=== PATIENT | male | born 1940 | race Caucasian/White ===

== ENCOUNTER 2016-07-27 07:12 | Outpatient (CLI) ==
[2015-09-28 08:59] VITALS: BMI 35.2
--- NOTE | 2016-07-27 08:14 | US ---
EXAM: Renal ultrasound. History: Hematuria. Technique: Multiple sonographic images through the kidneys were obtained. Color duplex Doppler was used to interrogate vascular flow. Findings: Technically limited examination due to body habitus. The right kidney measures 9.9 cm in long length without evidence for hydronephrosis or shadowing annika culus. There are two right renal cysts with the largest measuring 1.7 cm demonstrating posterior ac oustic enhancement. These cysts demonstrate minimal internal echoes. The left kidney measures 11.4 cm in long length without evidence for hydronephrosis or shadowing annika culus. There are two left renal cysts with the largest measuring 3.1 cm demonstrating minimal inter nal echoes. The bladder is not well distended. Impression: 1. No hydronephrosis. 2. Mildly complicated bilateral renal cysts. Follow-up ultrasound can be obtained in 6 months to d ocument stability.
== END 2016-07-27 07:13 | disposition home or self-care (01) ==
LOC: RAD 07:12
PROVIDERS: ATTEND General Practice
DX: R31.9 Hematuria, unspecified (principal)
CPT/HCPCS: 76770

== ENCOUNTER 2016-09-22 19:23 | Observation (INO) ==
[2016-09-22] MEDS ORDERED: GI COCKTAIL PO STA (19:45)
--- NOTE | 2016-09-22 19:47 | ED.PDOC ---
General ED Provider: Dr. CHEPE SUÁREZ Chief Complaint: Abdominal Pain Stated Complaint: Patient c/o pain to epigastric area that started after a later lunch. states he had sausage for lunch and started having burning and it hurts. He rate the pain at 7/10 states he took some bicarb and it helped a little. states he has a hx of reflux take prilosec. states he has been burping. Had a stress test 4 years ago prior to his hip surgery. Time Seen by Physician: 19:45 Mode of Arrival: Walk-In Information Source: Patient, Family Exam Limitations: No limitations Primary Care Provider: [facility] Nursing and Triage Documentation Reviewed and Agree: Yes Cardiovascular Complaint Exam - Chest Pain Complaint/Exam Duration: 4 hours Symptoms Are: Still present Timing: Constant Initial Severity: Moderate Current Severity: Moderate Location: Reports: Other (epigastric area ) Pain Radiates: Reports: None Character: Reports: Dull, Aching Aggravating: Reports: None Alleviating: Reports: None (gi cocktail slightly helps ) Associated Signs and Symptoms: Reports: Nausea, Abdominal pain. Denies: Diaphoresis, Vomiting, Fever, Palpitations, Cough, Hemoptysis, Back pain, Dizziness, Short of air, Calf pain, Calf swelling Related History: Reports: Similar episode (Reflux ) Related Surgical History: Reports: None History of Healthcare-Acquired Pneumonia: Reports: No AMI/ACS Risk Factors: Reports: None TAD Risk Factors: Reports: None Pulmonary Embolism Risk Factors: Reports: None Prior Care for this Complaint: No Recent Stress Test: No (4 year ago was normal (prior to hip repalcement) ) Recent Echo/LV Function: No JVD Present: No Subcutaneous Emphysema Present: No Diminshed Breath Sounds: No Reproducible Chest Wall Pain: No Bilateral Pulses Present: No Unequal Pulses Noted: No If Risk Factors for AMI/ACS Consider: EKG, Cardiac Enzymes, Oxygen Differential Diagnoses: Acute OK, ACS, GI Diseasae Review of Systems - Review Of Systems Constitutional: Reports: No symptoms Respiratory: Reports: No symptoms Cardiac: Reports: Chest pain (epigastric area. ) GI: Reports: Abdominal pain (epigastri carea ), Nausea. Denies: Constipated, Diarrhea, Difficulty swallowing : Reports: No symptoms Musculoskeletal: Reports: Back pain (chronic ) Skin: Reports: No symptoms Neurological: Reports: Anxiety Endocrine: Reports: No symptoms All Other Systems: Reviewed and Negative Past Medical History - Past Medical History Endocrine: Reports: None Cardiovascular: Reports: Hypertension Respiratory: Reports: None Hematological: Reports: Anemia Gastrointestinal: Reports: GERD Genitourinary: Reports: None Neuro/Psych: Reports: None Musculoskeletal: Reports: None Cancer: Reports: None - Surgical History General Surgical History: Reports: Orthopedic - Family History Family History: Reports: Unknown - Social History Smoking Status: Former smoker Hx Substance Use: No Physical Exam - Physical Exam Appearance: Ill-appearing Ill-appearing: Moderate Pain Distress: Moderate Eyes: LUIS EDUARDO, EOMI, Conjunctiva clear Neck: Supple Respiratory: Airway patent, Breath sounds clear, Breath sounds equal, Respirations nonlabored Cardiovascular: Bradycardia (with occasional Skipped beat) GI/: Soft, Nontender, No masses, Bowel sounds normal, No Organomegaly Musculoskeletal: Normal strength, ROM intact, No edema, No calf tenderness Skin: Warm, Dry, Normal color Neurological: Sensation intact, Motor intact, Reflexes intact, Cranial nerves intact, Alert, Oriented Psychiatric: Anxious Interpretation - Radiology Interpretation Radiology Interpretation By: Radiologist Radiology Results: Negative Exam Interpreted: CT Scan (chest and abdomen - Diverticular disease without inflamation. non obstructing stone. ) - EKG Interpretation Time of EKG #1: 19:37 Rate: Normal Rhythm: Sinus Interpretation: incomplete Right Bandle branch block Physician Notification - Case Discussed Physician Notified: Dr Park Time of Notification: 21:15 (ok to admit for obeservation. ) Critical Care Note - Critical Care Note Total Time (mins): 10 Course - Course Hematology/Chemistry: 09/22/16 19:49 09/22/16 19:49 Orders, Labs, Meds: Lab Review 09/22/16 09/22/16 19:43 19:49 WBC 7.69 RBC 4.62 L Hgb 14.3 Hct 42.5 MCV 92.0 MCH 31.0 MCHC 33.6 RDW Coeff of Monique 12.5 Plt Count 223 Immature Gran % (Auto) 0.3 Neut % (Auto) 66.4 Lymph % (Auto) 24.4 Eddy % (Auto) 7.4 Eos % (Auto) 1.0 Baso % (Auto) 0.5 Immature Gran # (Auto) 0.0 Neut # 5.1 Lymph # 1.9 Eddy # 0.6 Eos # 0.1 Baso # 0.0 Puncture Site Rb O2 Saturation 95.0 ABG pH 7.402 ABG pCO2 52.5 H ABG pO2 75.0 L ABG HCO3 32.7 H ABG Total CO2 34 H ABG Base Excess [address] Test + FiO2 % 21.0 Sodium 144 Potassium 3.3 L Chloride 99 Carbon Dioxide 37 H Anion Gap 11.3 BUN 18 Creatinine 0.83 Estimated GFR (MDRD) 90.00 BUN/Creatinine Ratio 21.68 Glucose 144 H Calcium 8.9 Total Bilirubin 0.34 AST 17 ALT 15 Alkaline Phosphatase 86 Total Creatine Kinase 59 Troponin I 0.1240 B-Natriuretic Peptide 139 H Total Protein 7.1 Albumin 3.6 Globulin 3.5 Albumin/Globulin Ratio 1.03 Amylase 68 Lipase 28 Orders Category Date Time Status ABG DRAW REQUEST Stat CARDIO 09/22/16 19:44 Completed EKG-(ED ONLY) Stat CARDIO 09/22/16 19:43 Completed ED APPLY O2 .ONCE EMERGENCY 09/22/16 19:43 Active ED IV/MEDIPORT/POWERPORT .ONCE EMERGENCY 09/22/16 19:43 Active ABG Stat LAB 09/22/16 19:43 Completed AMYLASE Stat LAB 09/22/16 19:49 Completed B-TYPE NATRIURETIC PEPTIDE Stat LAB 09/22/16 19:49 Completed CBC W/ AUTO DIFF Stat LAB 09/22/16 19:49 Completed COMPREHENSIVE METABOLIC PANEL Stat LAB 09/22/16 19:49 Completed CREATINE KINASE Stat LAB 09/22/16 19:49 Completed LIPASE Stat LAB 09/22/16 19:49 Completed TROPONIN I Stat LAB 09/22/16 19:49 Completed 0.9 % Sodium Chloride [Saline Flush] MEDS 09/22/16 19:43 Ordered 1 syr IVF PRN PRN Mag-Al Plus//Lidocaine [Gi Cocktail] MEDS 09/22/16 19:45 Discontinued 30 ml PO ONCE STA CT ABD/PEL WO RENAL STONE PROT Stat RADS 09/22/16 20:[address] CHEST W/O CONTRAST Stat RADS 09/22/16 20:06 Completed Medications Generic Name Dose Route Start Last Admin Trade Name Freq PRN Reason Stop Dose Admin Sodium Chloride 1 syr 09/22/16 19:43 Saline Flush IVF PRN PRN To flush IV Discontinued Medications Generic Name Dose Route Start Last Admin Trade Name Freq PRN Reason Stop Dose Admin Al Hydroxide/Mg Hydroxide 30 ml 09/22/16 19:45 09/22/16 19:58 Gi Cocktail PO 09/22/16 19:46 30 ml ONCE STA Administration Vital Signs: Temp Pulse Resp BP Pulse Ox 09/22/16 19:23 98.1 F 55 L 16 157/81 H 93 L YAQUELIN Risk Score Age >/= 65: Yes >/= 3 CAD Risk Factors: No Known CAD (Stenosis >/= 50%): No ASA Use in Past 7 Days: Yes Severe Angina (>/= 2 episodes in 24 hours): No EKG ST Changes >/= 0.5mm: No Postive Cardiac Marker: No YAQUELIN Total Score: 2 YAQUELIN Risk Score: Risk Score Odds of by 30D 0 0.1 (0.1-0.2) 1 0.3 (0.2-0.3) 2 0.4 (0.3-0.5) 3 0.7 (0.6-0.9) 4 1.2 (1.0-1.5) 5 2.2 (1.9-2.6) 6 3.0 (2.5-3.6) 7 4.8 (3.8-6.1) Departure - Departure Time of Disposition: 21:25 Disposition: PLACED OBSERVATION Discharge Problem: Abdominal pain Instructions: Abdominal Pain (ED) Condition: Stable Pt referred to PMD for follow-up: Yes Allergies/Adverse Reactions: Allergies latex Allergy (Unverified 09/22/16 19:27) BREAKS OUT WHEN USING LATEX GLOVES niacin Allergy (Unverified 09/22/16 19:27) HOT, RASH Home Medications: Ambulatory Orders Aspirin [Aspirin Ec] 81 mg PO DAILY 03/15/15 Cyanocobalamin (Vitamin B-12) [B-12] 2,500 mcg SL DAILY 03/15/15 Omeprazole 20 mg PO BEDTIME 03/15/15 Magnesium Oxide [Magnesium] 500 mg PO DAILY #30 tab-cap 03/17/16 Ezetimibe/Simvastatin [Vytorin 10-40 mg Tablet] 1 each PO BEDTIME 09/22/16 [place]-3S/Dha/Epa/Fish Oil [Fish Oil [place]-3 Softgel] 2 each PO DAILY 09/22/16 Disposition Discussed With: Patient, Family
[2016-09-22 19:54] LABS: BASOPHILS % (AUTO) 0.5 % (0.0-3.0); EOSINOPHILS # (AUTO) 0.1 K/ul (0.0-0.7); HEMATOCRIT 42.5 % (42.0-52.0); HEMOGLOBIN 14.3 g/dl (14.0-18.0); IMMATURE GRANULOCYTE % (AUTO) 0.3 % (0.0-5.0); LYMPHOCYTES # (AUTO) 1.9 K/uL (0.60-3.4); LYMPHOCYTES % (AUTO) 24.4 (10.0-50.0); MEAN CORPUSCULAR HGB CONC 33.6 (31.8-35.4); MONOCYTES # (AUTO) 0.6 K/uL (0.4-2.0); MONOCYTES % (AUTO) 7.4 (0-10); NEUTROPHILS # (AUTO) 5.1 K/ul (2.0-6.9); NEUTROPHILS % (AUTO) 66.4; PLATELET COUNT 223 10^3/uL (140-440); RED BLOOD COUNT 4.62 10^6/ul (4.70-6.10); WHITE BLOOD COUNT 7.69 K/ul (4.2-10.2)
[2016-09-22 19:57] LABS: ABG BASE EXCESS 8 (-2.0-2.0); ABG HCO3 32.7 (22.0-26.0); ABG PCO2 52.5 mmHg (35-45); ABG PH 7.402 (7.35-7.45); ABG TCO2 34 (22.0-28.0)
[2016-09-22 20:19] LABS: ALBUMIN 3.6 g/dL (3.4-5.0); ALBUMIN/GLOBULIN RATIO 1.03; ANION GAP 11.3; BILIRUBIN,TOTAL 0.34 mg/dL (0.00-1.20); BUN/CREATININE RATIO 21.68; CALCIUM 8.9 mg/dL (8.2-10.2); CREATININE 0.83 mg/dL (0.60-1.10); POTASSIUM 3.3 mmol/L (3.5-5.1); TOTAL PROTEIN 7.1 g/dL (5.8-8.1); TROPONIN I 0.124 ng/ml (0.0000-0.4000)
--- NOTE | 2016-09-22 20:39 | CT ---
Exam: CT of the chest without contrast History: Chest pain, epigastric pain Technique: [address] of the chest without intravascular contrast FINDINGS: Lung windows show no infiltrative opacities. There is scarring of the lingula and right m iddle lobe. No pleural fluid. Atherosclerotic calcification of the aorta and coronary arteries. N o aneurysmal dilation. No pathologic lymph node enlargement or abundance of mediastinum. No acute findings of the chest wall soft tissues or bony thorax. Impression: 1. No acute findings of the chest 2. Scarring of the lingula and right middle lobe.
--- NOTE | 2016-09-22 20:41 | CT ---
EXAM: CT scan of the abdomen and pelvis without contrast HISTORY: Epigastric pain TECHNIQUE: Imaging of the abdomen and pelvis was performed without intravenous contrast. 3 mm thin axial images and coronal and sagittal reconstructions were provided for interpretation. Comparison none . FINDINGS: The liver, spleen, pancreas, adrenal glands and kidneys appear normal. The proximal uret ers are normal size. There is a lobulated cyst seen within the mid to upper pole of the left kidney. There is a small nonobstructing calculus seen within the upper pole of the left kidney. The small a nd large bowel loops are normal caliber. There is no free air. No acute abnormalities are seen wit hin the anterior abdominal wall. No acute inflammatory changes are seen surrounding the gallbladder. The helical images obtained through the pelvis demonstrate a normal appearance of the rectum, urinar y bladder. There is no free fluid seen within the pelvis. There is diffuse diverticular disease of the sigmoid colon and descending colon without acute inflammation. The appendix appears normal. N o retroperitoneal abnormalities are seen. No acute abnormalities are seen within the anterior abdom inal wall. Lung bases are clear. No lytic or blastic lesions are seen within the osseous structure s. IMPRESSION: Diverticular disease of the distal colon without acute inflammation. No evidence for small bowel obstruction. There is no ureteral obstruction. Nonobstructing nephrolithiasis seen within the left kidney.
[2016-09-22 20:42] LABS: AMYLASE 68 U/L (25-115); LIPASE 28 U/L (8-78)
[2016-09-22] MEDS ORDERED: ZOFRAN 4 MG/2 ML IVP STA (21:21)
[2016-09-22] MEDS ORDERED: MORPHINE 2 MG/ML SYRINGE IVP PRN (21:39)
[2016-09-22] MEDS ORDERED: ZOFRAN 4 MG/2 ML IVP PRN (21:39)
[2016-09-22] MEDS ORDERED: TYLENOL PO PRN (21:39)
[2016-09-22] MEDS ORDERED: PROTONIX IV IVP STA (21:44)
[2016-09-22] MEDS ORDERED: APRESOLINE PO STA (22:00)
[2016-09-22] MEDS ORDERED: PROTONIX IV IVP SCH (22:00)
[2016-09-22 22:46] VITALS: BMI 33.1
[2016-09-22] MEDS ORDERED: D5%-1/2NS-KCL 20 MEQ/L IV SOL 1,000 ML IV SCH (23:30)
[2016-09-23 05:12] LABS: BASOPHILS % (AUTO) 0.3 % (0.0-3.0); HEMATOCRIT 44.6 % (42.0-52.0); HEMOGLOBIN 14.6 g/dl (14.0-18.0); IMMATURE GRANULOCYTE % (AUTO) 0.4 % (0.0-5.0); LYMPHOCYTES # (AUTO) 1.5 K/uL (0.60-3.4); LYMPHOCYTES % (AUTO) 11.4 (10.0-50.0); MEAN CORPUSCULAR HEMOGLOBIN 30.9 pg (27.0-31.0); MEAN CORPUSCULAR HGB CONC 32.7 (31.8-35.4); MEAN CORPUSCULAR VOLUME 94.5 fl (80.0-94.0); MONOCYTES # (AUTO) 0.7 K/uL (0.4-2.0); MONOCYTES % (AUTO) 5.6 (0-10); NEUTROPHILS # (AUTO) 10.6 K/ul (2.0-6.9); NEUTROPHILS % (AUTO) 82.3; PLATELET COUNT 164 10^3/uL (140-440); RED BLOOD COUNT 4.72 10^6/ul (4.70-6.10); WHITE BLOOD COUNT 12.93 K/ul (4.2-10.2)
[2016-09-23 05:40] LABS: ANION GAP 14.3; CALCIUM 8.6 mg/dL (8.2-10.2); CREATININE 0.72 mg/dL (0.60-1.10); POTASSIUM 4.3 mmol/L (3.5-5.1); TROPONIN I 0.214 ng/ml (0.0000-0.4000)
[2016-09-23] MEDS ORDERED: ASPIRIN 81 MG PO SCH (09:00)
[2016-09-23] MEDS ORDERED: MULTIVITAMIN PO SCH (09:00)
[2016-09-23] MEDS: NON-FORMULARY MEDICATION (Magnesium Oxide [Magnesium] 500 MG) PO SCH ×22 (10:36)
[2016-09-23] MEDS: NON-FORMULARY MEDICATION (Cyanocobalamin (Vitamin B-12) [B-12] 2,500 MCG) SL SCH (10:36)
[2016-09-23] MEDS: LOVENOX SUBCUT SCH (10:37)
[2016-09-23] MEDS: FISH OIL PO SCH (10:39)
[2016-09-23] MEDS: DHA PO SCH (10:39)
[2016-09-23] MEDS: EPA PO SCH (10:39)
[2016-09-23] MEDS: OMEGA PO SCH (10:39)
[2016-09-23] MEDS: D5%-1/2NS-KCL 20 MEQ/L IV SOL 1,000 ML IV SCH ×2 (11:02→22:37)
[2016-09-23] MEDS ORDERED: TYLENOL ONE (11:36)
[2016-09-23 11:47] LABS: CHOL/HDL RATIO 3.3 (4.5-6.4)
[2016-09-23 12:07] LABS: TROPONIN I 0.247 ng/ml (0.0000-0.4000)
[2016-09-23] MEDS: TYLENOL PO PRN (20:42)
[2016-09-23] MEDS ORDERED: ATENOLOL 12.5 MG PO SCH (21:00)
[2016-09-23] MEDS ORDERED: PROTONIX IV IVP SCH (21:00)
[2016-09-23] MEDS ORDERED: EZETIMIBE PO SCH ×21 (21:00)
[2016-09-23] MEDS ORDERED: SIMVASTATIN PO SCH ×21 (21:00)
[2016-09-24 05:50] VITALS: BP 127/71; TEMP 97.5
[2016-09-24 05:52] LABS: BASOPHILS % (AUTO) 0.3 % (0.0-3.0); EOSINOPHILS % (AUTO) 0.2 % (0.0-7.0); HEMATOCRIT 39.4 % (42.0-52.0); HEMOGLOBIN 12.9 g/dl (14.0-18.0); IMMATURE GRANULOCYTE % (AUTO) 0.5 % (0.0-5.0); LYMPHOCYTES # (AUTO) 1.2 K/uL (0.60-3.4); MEAN CORPUSCULAR HEMOGLOBIN 30.3 pg (27.0-31.0); MEAN CORPUSCULAR HGB CONC 32.7 (31.8-35.4); MEAN CORPUSCULAR VOLUME 92.5 fl (80.0-94.0); MONOCYTES % (AUTO) 9.1 (0-10); NEUTROPHILS # (AUTO) 8.3 K/ul (2.0-6.9); NEUTROPHILS % (AUTO) 78.9; PLATELET COUNT 191 10^3/uL (140-440); RED BLOOD COUNT 4.26 10^6/ul (4.70-6.10)
[2016-09-24 06:17] LABS: ANION GAP 6.2; BUN/CREATININE RATIO 16.17; CALCIUM 8.5 mg/dL (8.2-10.2); CREATININE 0.68 mg/dL (0.60-1.10); POTASSIUM 4.2 mmol/L (3.5-5.1)
[2016-09-24] MEDS: TYLENOL PO PRN (08:53)
[2016-09-24] MEDS: NON-FORMULARY MEDICATION (Magnesium Oxide [Magnesium] 500 MG) PO SCH ×22 (08:54)
[2016-09-24] MEDS: NON-FORMULARY MEDICATION (Cyanocobalamin (Vitamin B-12) [B-12] 2,500 MCG) SL SCH (08:54)
[2016-09-24] MEDS: LOVENOX SUBCUT SCH (08:54)
[2016-09-24] MEDS: EPA PO SCH (08:56)
[2016-09-24] MEDS: DHA PO SCH (08:56)
[2016-09-24] MEDS: FISH OIL PO SCH (08:56)
[2016-09-24] MEDS: OMEGA PO SCH (08:56)
--- NOTE | 2016-10-06 11:37 | HP ---
CHIEF COMPLAINT: Epigastric pain. SOURCE OF HISTORY: Patient and . HISTORY OF PRESENT ILLNESS: The patient had lunch about 1:30 in the afternoon at [employer]. He had spaghetti, plus sausage. He did not have any problems and on the way paid their bills to the hospital and also went to a grocery store. The patient about an hour and half to two hours after the meals did experience epigastric pain and with no particular radiation and no vomiting or diarrhea. He took some bicarbonate and it did help a little. He has a history of reflux problems and the bicarbonate did help some problems in the past. The pain persisted and so he presented to the emergency room with his . The patient had a work up consisting of CBC, plus chemistry, EKG, CT scan of the chest and abdomen and pelvis without contrast. He also was given a GI cocktail, which helped somewhat. He still had persistent pain and so the patient was admitted to the hospital. He also had a normal cardiac enzymes and normal serum amylase and lipase. PAST PERSONAL HISTORY: The patient has hypertension, mild anemia, asthma, GERD, renal stones and right hip replacement. He also had COPD and a previous smoker. He smoked approximately 20 years. He had right total hip replacement, plus a colonoscopy. FAMILY HISTORY: Sister had myocardial infarction. Father committed suicide. Mother had colon carcinoma and there is a preponderance of malignancy on his mother's side. SOCIAL HISTORY: and lives with . He smoked for approximately 20 years, but stopped 19 years ago. HOME MEDICATIONS: Vitamin B12 2,500 mcg SL daily Aspirin 81 mg daily Omeprazole 20 mg at bedtime Multivitamin one daily Magnesium Oxide 500 mg daily Atenolol 12.5 mg at bedtime Valsartan/HCTZ 80/12.5 mg daily Reliance 3 two daily Vytorin 10/40 mg one at bedtime ALLERGIES: Latex and Niacin. PHYSICAL EXAMINATION: GENERAL: 76 year old male admitted to the hospital because of epigastric pain without any particular radiation. The pain had improved with the medication given at the emergency room. There were no associated symptoms, except for the epigastric pain, as well as tenderness. VITAL SIGNS: Temperature 98.1, pulse 55, blood pressure 157/81, respiratory rate 16, oxygen saturation 93 at room air. He is 5'10", 242 pounds. HEAD: Unremarkable. FACE: Symmetrical and equal with no facial weakness and no tenderness to palpation under pressure on the frontal or maxillary sinus areas. EYES: Pupils equal/reactive to light about 3 mm in size. Conjunctivae slightly pale. Sclerae not icteric. MOUTH: Unremarkable. NECK: No masses. No bruit. No tenderness. CHEST: Essentially symmetrical and equal with good expansion with no remarkable tenderness. LUNGS: Breath sounds are somewhat diminished with minimal wheeze at the time of my examination at 10:45 p.m. on the day of admission. HEART: Normal sinus rhythm. ABDOMEN: Flat with tenderness in the epigastric area. None in the rest of the abdomen. No masses palpable. No muscular guarding. Bowel sounds are active. EXTERNAL GENITALIA: Not examined. RECTAL: Not done. LOWER EXTREMITIES: Symmetrical and equal with edema 2+. The anterior tibials are present, but the posterior's are absent. UPPER EXTREMITIES: Symmetrical and equal. ASSESSMENT: 1. Epigastric pain, etiology undetermined. It may be food hypersensitivity. 2. History of hypertension on medication. 3. History of GERD on medication. 4. History of asthma. 5. History of COPD. 6. History of chronic tobacco use and abuse, stopped 19 years ago. 7. Elevated BMI 33.1. 8. Anemia. 9. Dyslipidemia. 10. Hypoxemia. 11. Hypercarbia. MTDD
--- NOTE | 2016-10-09 09:37 | PN ---
DATE OF VISIT: 09/23/16 This is a 76 year old male admitted to the hospital because of epigastric pain. I did see him on the night of admission at about 10:45 p.m. The patient at that time was feeling better, although he had persistent pain, but much less. LUNGS: The lungs had minimal expiratory wheeze with no obvious rales. HEART: Audible with good tones. ABDOMEN: The epigastric area was tender to palpation, but no masses and no bruit. No muscular guarding and no remarkable tenderness in the rest of the area in the abdomen. LOWER EXTREMITIES: The legs had some 2+ pitting edema and absent posterior tibials. The patient's repeat chemistry today showed no significant findings, except the carbon dioxide has decreased from 37 to 29, which is now normal. The repeat CK remained normal, as well as the Troponin. The initial BNP was slightly elevated at 139 and the serum amylase and lipase were normal on admission, however the lipase did rise to 168 on 09/23/16. I did discuss this with the patient and also his and I advised a day more of staying in the hospital to see what the lipase would do including the amylase with resumption of oral feeding. The patient was placed NPO after I had seen him on the day of admission. The chemistries will be repeated tomorrow, as well as the lipase and amylase. MONET
--- NOTE | 2016-10-09 09:57 | DS ---
PATIENT IDENTIFICATION: 76 year old male who experienced epigastric pain described as severe and constant in spite of the bicarbonate about 1 and a half to 2 hours after consuming spaghetti with meatballs or sausages. He was seen in the emergency room about 5 and half hours to 6 after the meal. The patient's examination revealed tenderness in the epigastric area, otherwise the rest were unremarkable. This patient also had absent posterior tibial pulse, as well as some expiratory wheezing and he is known to have asthma and COPD with previous tobacco use. HOSPITAL COURSE: The serum lipase did increase beyond normal on the second hospital stay, 09/23/16, as well as the amylase. Although the amylase remained normal. The repeat CK and Troponin remained normal. The CO2 has decreased from 37 to 29. The patient is feeling better and with no significant pain and indeed the tenderness is not remarkable . The rest of the abdomen was soft. The patient on 09/24/16 is alert. VITAL SIGNS: Early in the morning at 5:59 had a temperature of 97.3, pulse 54, blood pressure 127/71, respiratory rate 22, oxygen saturation 92 at 2 Liters. The patient claimed that he is feeling better and no epigastric pain. The Prilosec was changed to Protonix, as the Protonix seemed to have improved the problem. Although it may still be some food intolerance that triggered the epigastric pain. It does not seem to be a pancreatitis, since the lipase resolved the next day and it should have stayed longer. LUNGS: The lungs has wheezing and the posterior chest forman bilaterally with no rales. HEART: Audible with good tones and regular. ABDOMEN: The abdomen has no tenderness. LOWER EXTREMITIES: No tenderness in the calf muscles and the posterior tibials are still absent. PLAN: 1. The patient is then discharged today. 2. Resume his previous medications and the Omeprazole was changed to Protonix to be taken one a day before the biggest meal. 3. He should see me in one week and before if there is any concerns. 4. This patient may require an endoscopy. He had a previous colonoscopy and would be sent to the same GI doctor. We will discuss that when he come to the office for follow up. FINAL DIAGNOSES: 1. EPIGASTRIC PAIN WITH NO RADIATION, RESOLVED. ETIOLOGY UNDETERMINED 2. HYPERTENSION, CONTROLLED 3. HISTORY OF ASTHMA 4. HISTORY OF CHRONIC OBSTRUCTIVE PULMONARY DISEASE 5. HISTORY OF CHRONIC TOBACCO USE AND ABUSE, SMOKED FOR 19 YEARS 6. ELEVATED BMI, PERSISTENT 7. HISTORY OF RIGHT HIP REPLACEMENT 8. HISTORY OF ANEMIA 9. HISTORY OF URETEROLITHIASIS MTDD
== END 2016-09-24 11:10 | disposition home or self-care (01) ==
LOC: ED 19:23 → MEDSURG A 21:43
PROVIDERS: ADMIT General Practice; ATTEND General Practice
DX: R10.13 Epigastric pain (principal); I10 Essential (primary) hypertension; J44.9 Chronic obstructive pulmonary disease, unspecified; J45.909 Unspecified asthma, uncomplicated; R06.89 Other abnormalities of breathing; R60.0 Localized edema; D64.9 Anemia, unspecified; N20.1 Calculus of ureter; K21.9 Gastro-esophageal reflux disease without esophagitis; R63.8 Other symptoms and signs concerning food and fluid intake; Z87.442 Personal history of urinary calculi; Z87.891 Personal history of nicotine dependence; Z79.899 Other long term (current) drug therapy
CPT/HCPCS: 36415; 74176; 80048; 80053; 80061; 82150; 82550; 82803; 83690; 83880; 84484; 85025; 93005; 93010; 96361; 96374; 96375; 96376; 99217; 99219; 99225; 99284; 99285

== ENCOUNTER 2016-09-25 12:25 | Outpatient (CLI) ==
[2016-09-25 13:38] LABS: FLU INTERNAL QC INTERNAL QC VALID; RAPID FLU A NEGATIVE (NEGATIVE); RAPID FLU B NEGATIVE (NEGATIVE)
[2016-09-25 13:38] LABS: BASOPHILS % (AUTO) 0.2 % (0.0-3.0); HEMATOCRIT 39.7 % (42.0-52.0); HEMOGLOBIN 13.1 g/dl (14.0-18.0); IMMATURE GRANULOCYTE % (AUTO) 0.5 % (0.0-5.0); LYMPHOCYTES # (AUTO) 1.6 K/uL (0.60-3.4); LYMPHOCYTES % (AUTO) 12.2 (10.0-50.0); MEAN CORPUSCULAR HEMOGLOBIN 30.2 pg (27.0-31.0); MEAN CORPUSCULAR VOLUME 91.5 fl (80.0-94.0); MONOCYTES # (AUTO) 1.1 K/uL (0.4-2.0); MONOCYTES % (AUTO) 8.8 (0-10); NEUTROPHILS # (AUTO) 10.1 K/ul (2.0-6.9); NEUTROPHILS % (AUTO) 78.3; PLATELET COUNT 225 10^3/uL (140-440); RED BLOOD COUNT 4.34 10^6/ul (4.70-6.10); WHITE BLOOD COUNT 12.89 K/ul (4.2-10.2)
[2016-09-25 13:52] LABS: ALBUMIN 3.1 g/dL (3.4-5.0); ALBUMIN/GLOBULIN RATIO 0.84; ANION GAP 12.3; BILIRUBIN,TOTAL 1.34 mg/dL (0.00-1.20); BUN/CREATININE RATIO 22.35; CALCIUM 9.1 mg/dL (8.2-10.2); CREATININE 0.85 mg/dL (0.60-1.10); POTASSIUM 4.3 mmol/L (3.5-5.1); TOTAL PROTEIN 6.8 g/dL (5.8-8.1)
== END 2016-09-25 12:26 | disposition home or self-care (01) ==
LOC: LAB 12:25
PROVIDERS: ATTEND General Practice
DX: R50.9 Fever, unspecified (principal)
CPT/HCPCS: 36415; 80053; 84145; 85025; 87651; 87804; 87880

== ENCOUNTER 2016-10-01 11:49 | Outpatient (CLI) ==
--- NOTE | 2016-10-01 12:55 | US ---
EXAM: Ultrasound soft tissue neck HISTORY: Localized swelling, swelling, mass or lump. FINDINGS: Burgess-scale ultrasound and color Doppler imaging was performed in the region of interest d escribed as the submandibular gland area, right submandibular area, palpable area. There was a small normal-sized lymph node identified in this region with a transverse dimension of 0 .44 cm and a benign appearing fatty hilum. No other masses were identified. No fluid collections. If concern is persistent, consider correlation with enhanced CT. IMPRESSION: Small lymph node found in the region of interest. Otherwise unremarkable.
== END 2016-10-01 11:50 | disposition home or self-care (01) ==
LOC: LAB 11:49
PROVIDERS: ATTEND General Practice
DX: R50.9 Fever, unspecified (principal); R22.0 Localized swelling, mass and lump, head
CPT/HCPCS: 36415; 84075

== ENCOUNTER 2017-01-07 11:32 | Outpatient (CLI) ==
[2017-01-07 13:08] LABS: BASOPHILS % (AUTO) 0.7 % (0.0-3.0); EOSINOPHILS # (AUTO) 0.1 K/ul (0.0-0.7); EOSINOPHILS % (AUTO) 2.4 % (0.0-7.0); HEMATOCRIT 40.6 % (42.0-52.0); HEMOGLOBIN 13.3 g/dl (14.0-18.0); IMMATURE GRANULOCYTE % (AUTO) 0.2 % (0.0-5.0); LYMPHOCYTES # (AUTO) 1.8 K/uL (0.60-3.4); LYMPHOCYTES % (AUTO) 33.4 (10.0-50.0); MEAN CORPUSCULAR HEMOGLOBIN 30.7 pg (27.0-31.0); MEAN CORPUSCULAR HGB CONC 32.8 (31.8-35.4); MEAN CORPUSCULAR VOLUME 93.8 fl (80.0-94.0); MONOCYTES # (AUTO) 0.5 K/uL (0.4-2.0); MONOCYTES % (AUTO) 8.3 (0-10); PLATELET COUNT 229 10^3/uL (140-440); RED BLOOD COUNT 4.33 10^6/ul (4.70-6.10); WHITE BLOOD COUNT 5.45 K/ul (4.2-10.2)
[2017-01-07 13:14] LABS: BILIRUBIN,URINE Negative (NEGATIVE); KETONES,URINE Negative (NEGATIVE); LEUKOCYTE ESTERASE ,URINE Negative (NEGATIVE); NITRITE,URINE Negative (NEGATIVE); PH,URINE 7.5 (5-9); PROTEIN,URINE Negative (NEGATIVE); URINE, BLOOD Trace-intact (NEGATIVE)
[2017-01-07 13:19] LABS: ALBUMIN 3.5 g/dL (3.4-5.0); ALBUMIN/GLOBULIN RATIO 1.13; ANION GAP 12.1; BILIRUBIN,TOTAL 0.65 mg/dL (0.00-1.20); BUN/CREATININE RATIO 16.66; CREATININE 0.78 mg/dL (0.60-1.10); POTASSIUM 4.1 mmol/L (3.5-5.1); TOTAL PROTEIN 6.6 g/dL (5.8-8.1)
[2017-01-07 13:20] LABS: CHOL/HDL RATIO 3.7 (4.5-6.4)
[2017-01-07 13:52] LABS: ADD URINE MICROSCOPIC YES
== END 2017-01-07 11:33 | disposition home or self-care (01) ==
LOC: LAB 11:32
PROVIDERS: ATTEND General Practice
DX: E78.5 Hyperlipidemia, unspecified (principal); Z79.899 Other long term (current) drug therapy
CPT/HCPCS: 36415; 80053; 80061; 81001; 85025

== ENCOUNTER 2017-07-07 13:53 | Outpatient (CLI) ==
[2017-07-07 14:03] LABS: BASOPHILS % (AUTO) 0.5 % (0.0-3.0); EOSINOPHILS # (AUTO) 0.1 K/ul (0.0-0.7); EOSINOPHILS % (AUTO) 1.4 % (0.0-7.0); HEMATOCRIT 41.9 % (42.0-52.0); HEMOGLOBIN 13.6 g/dl (14.0-18.0); IMMATURE GRANULOCYTE % (AUTO) 0.2 % (0.0-5.0); LYMPHOCYTES # (AUTO) 1.7 K/uL (0.60-3.4); LYMPHOCYTES % (AUTO) 25.3 (10.0-50.0); MEAN CORPUSCULAR HEMOGLOBIN 30.4 pg (27.0-31.0); MEAN CORPUSCULAR HGB CONC 32.5 (31.8-35.4); MEAN CORPUSCULAR VOLUME 93.7 fl (80.0-94.0); MONOCYTES # (AUTO) 0.4 K/uL (0.4-2.0); MONOCYTES % (AUTO) 6.6 (0-10); NEUTROPHILS # (AUTO) 4.3 K/ul (2.0-6.9); PLATELET COUNT 223 10^3/uL (140-440); RED BLOOD COUNT 4.47 10^6/ul (4.70-6.10); WHITE BLOOD COUNT 6.53 K/ul (4.2-10.2)
[2017-07-07 14:05] LABS: BILIRUBIN,URINE Negative (NEGATIVE); KETONES,URINE Negative (NEGATIVE); LEUKOCYTE ESTERASE ,URINE Negative (NEGATIVE); NITRITE,URINE Negative (NEGATIVE); PROTEIN,URINE Negative (NEGATIVE); URINE, BLOOD Trace-intact (NEGATIVE)
[2017-07-07 14:10] LABS: ADD URINE MICROSCOPIC YES
[2017-07-07 14:34] LABS: ALBUMIN 3.4 g/dL (3.4-5.0); ALBUMIN/GLOBULIN RATIO 0.97; ANION GAP 9.8; BILIRUBIN,TOTAL 0.6 mg/dL (0.00-1.20); BUN/CREATININE RATIO 22.07; CREATININE 0.77 mg/dL (0.60-1.10); POTASSIUM 3.8 mmol/L (3.5-5.1); TOTAL PROTEIN 6.9 g/dL (5.8-8.1)
== END 2017-07-07 13:54 | disposition home or self-care (01) ==
LOC: LAB 13:53
PROVIDERS: ATTEND General Practice
DX: E78.5 Hyperlipidemia, unspecified (principal); E53.8 Deficiency of other specified B group vitamins; I15.9 Secondary hypertension, unspecified; K21.9 Gastro-esophageal reflux disease without esophagitis; Z79.899 Other long term (current) drug therapy
CPT/HCPCS: 36415; 80053; 80061; 81001; 85025

== ENCOUNTER 2018-01-10 11:14 | Outpatient (CLI) | END 2018-01-10 11:15 | disposition home or self-care (01) | LOC: FCC-LAB 11:14 | PROVIDERS: ATTEND General Practice | DX: I15.9 Secondary hypertension, unspecified (principal); E78.5 Hyperlipidemia, unspecified; E53.8 Deficiency of other specified B group vitamins; Z79.899 Other long term (current) drug therapy; Z12.5 Encounter for screening for malignant neoplasm of prostate | CPT/HCPCS: 36415; 80053; 80061; 81001; 85025 ==

== ENCOUNTER 2018-04-09 08:19 | Emergency (ER) ==
[2018-04-09 08:28] VITALS: BP 144/76; TEMP 96.7; BMI 35.3
[2018-04-09] MEDS ORDERED: ASPIRIN CHEWABLE PO STA (08:46)
[2018-04-09] MEDS ORDERED: NITROSTAT SL STA (08:48)
--- NOTE | 2018-04-09 08:49 | ED.PDOC ---
General ED Provider: Dr. BARB OSHEA Chief Complaint: Chest Pain Stated Complaint: Onset pressure in mid substernal chest upon awakening this morning at 0430 hrs/ States was clammy and having mild sob. Was brought to ER arriving after 0830. Tightness in chest currently Time Seen by Physician: 08:35 Mode of Arrival: Walk-In Information Source: Patient, Family Exam Limitations: No limitations [facility] and T[facility] Documentation Reviewed and Agree: Yes Does patient meet sepsis criteria?: No System Inflammatory Response Syndrome: Not Applicable Sepsis Protocol: For patient's 13 years and over: Temp is 96.8 and below OR 101 and greater Pulse >90 BPM Resp >20/minute Acutely Altered Mental Status Are patient's symptoms suggestive of a new infection, such as: -Pneumonia -Skin, Soft Tissue -Endocarditis -UTI -Bone, Joint Infection -Implantable Device -Acute Abdominal Infection -Wound Infection -Meningitis -Blood Stream Catheter Infection -Unknown Cardiovascular Complaint Exam - Chest Pain Complaint/Exam Onset: Sudden Duration: 3.5 hrs Symptoms Are: Still present Timing: Constant Initial Severity: Severe Current Severity: Moderate Location: Reports: Midsternal Pain Radiates: Reports: Left shoulder, Left arm Character: Reports: Tightness, Heaviness Aggravating: Reports: Exertion Alleviating: Reports: None Associated Signs and Symptoms: Reports: Diaphoresis, Nausea, Short of air Related History: Reports: Similar episode History of Healthcare-Acquired Pneumonia: Reports: No AMI/ACS Risk Factors: Reports: None, Sedentary, Obesity, Family history, Hypertension, Dyslipidemia TAD Risk Factors: Reports: Hypertension Pulmonary Embolism Risk Factors: Reports: None Prior Care for this Complaint: Yes Recent Stress Test: No Recent Echo/LV Function: No JVD Present: No Subcutaneous Emphysema Present: No Diminshed Breath Sounds: No Reproducible Chest Wall Pain: No Bilateral Pulses Present: Yes Unequal Pulses Noted: No If Risk Factors for AMI/ACS Consider: EKG, Cardiac Enzymes, Oxygen, Aspirin Review of Systems - Review Of Systems Constitutional: Reports: No symptoms Eyes: Reports: No symptoms Ears, Nose, Mouth, Throat: Reports: No symptoms Respiratory: Reports: No symptoms Cardiac: Reports: Chest pain GI: Reports: No symptoms : Reports: No symptoms Musculoskeletal: Reports: No symptoms Skin: Reports: No symptoms Neurological: Reports: No symptoms Endocrine: Reports: No symptoms Hematologic/Lymphatic: Reports: No symptoms All Other Systems: Reviewed and Negative Past Medical History - Past Medical History Endocrine: Reports: None Cardiovascular: Reports: Hypertension Respiratory: Reports: None Hematological: Reports: Anemia Gastrointestinal: Reports: GERD Genitourinary: Reports: None Neuro/Psych: Reports: None Musculoskeletal: Reports: None Cancer: Reports: None - Surgical History General Surgical History: Reports: Orthopedic - Family History Family History: Reports: Unknown - Social History Smoking Status: Former smoker Hx Substance Use: No Physical Exam - Physical Exam Appearance: Well-appearing, Obese Ill-appearing: Mild Pain Distress: Moderate Eyes: LUIS EDUARDO, EOMI, Conjunctiva clear ENT: Ears normal, Nose normal, Oropharynx normal Neck: Supple Respiratory: Airway patent, Breath sounds clear, Breath sounds equal, Respirations nonlabored Cardiovascular: RRR, Pulses normal, No rub, No murmur GI/: Soft, Nontender, No masses, Bowel sounds normal, No Organomegaly Musculoskeletal: Normal strength, ROM intact, No edema, No calf tenderness Skin: Warm, Dry, Normal color Neurological: Sensation intact, Motor intact, Reflexes intact, Cranial nerves intact, Alert, Oriented Psychiatric: Affect appropriate, Mood appropriate Interpretation - Radiology Interpretation Radiology Interpretation By: ED Physician Radiology Results: No acute changes - Linker Up Rate: Normal Rhythm: Sinus - EKG Interpretation Time of EKG #1: 08:40 Rate: Normal Rhythm: Sinus Ectopy: None ST Segment: Other (ST Segm elevation) Interpretation: Acute inferior posterior GA Physician Notification - Case Discussed Physician Notified: Dr Castaneda Time of Notification: 08:50 (Called [facility] [place] and spoke to ER Physician who accepted Patient in Transfer) Critical Care Note - Critical Care Note Total Time (mins): 30 Course - Course Orders, Labs, Meds: Orders Category Date Time Status EKG-(ED ONLY) Stat CARDIO 04/09/18 08:44 Ordered CBC W/ AUTO DIFF Stat LAB 04/09/18 08:44 Ordered COMPREHENSIVE METABOLIC PANEL Stat LAB 04/09/18 08:44 Ordered CREATINE KINASE Stat LAB 04/09/18 08:44 Ordered TROPONIN I Stat LAB 04/09/18 08:44 Ordered Aspirin [Aspirin Chewable] MEDS 04/09/18 08:46 Stat 243 mg PO ONCE STA Nitroglycerin [Nitrostat] MEDS 04/09/18 08:48 Stat 0.4 mg SL ONCE STA CHEST, 1V AP ONLY Stat RADS 04/09/18 08:44 Ordered Medications Discontinued Medications Generic Name Dose Route Start Last Admin Trade Name Cosme PRN Reason Stop Dose Admin Aspirin 243 mg 04/09/18 08:46 04/09/18 08:51 Aspirin Chewable PO 04/09/18 08:47 243 mg ONCE STA Administration Nitroglycerin 0.4 mg 04/09/18 08:48 04/09/18 08:55 Nitrostat SL 04/09/18 08:49 0.4 mg ONCE STA Administration Vital Signs: Temp Pulse Resp BP Pulse Ox 04/09/18 08:19 96.7 F L 54 L 22 144/76 H 96 AMI Core - Clinical Trial Participant Clinical Trial Participant: No YAQUELIN Risk Score Age >/= 65: Yes >/= 3 CAD Risk Factors: Yes Known CAD (Stenosis >/= 50%): No ASA Use in Past 7 Days: No Severe Angina (>/= 2 episodes in 24 hours): No EKG ST Changes >/= 0.5mm: Yes YAQUELIN Total Score: 3 YAQUELIN Risk Score: Risk Score Odds of by 30D 0 0.1 (0.1-0.2) 1 0.3 (0.2-0.3) 2 0.4 (0.3-0.5) 3 0.7 (0.6-0.9) 4 1.2 (1.0-1.5) 5 2.2 (1.9-2.6) 6 3.0 (2.5-3.6) 7 4.8 (3.8-6.1) Departure - Departure Time of Disposition: 08:50 Disposition: TSF SHORT-TRM HOSP Discharge Problem: ST elevation (STEMI) myocardial infarction Condition: Stable Pt referred to PMD for follow-up: Yes IPMP verified?: No Allergies/Adverse Reactions: Allergies latex Allergy (Verified 04/09/18 08:31) BREAKS OUT WHEN USING LATEX GLOVES niacin Allergy (Verified 04/09/18 08:31) HOT, RASH Home Medications: Ambulatory Orders Aspirin [Aspirin Ec] 81 mg PO DAILY 03/15/15 Cyanocobalamin (Vitamin B-12) [B-12] 2,500 mcg SL DAILY 03/15/15 Omeprazole 20 mg PO BEDTIME 03/15/15 Magnesium Oxide [Magnesium] 500 mg PO DAILY #30 tab-cap 03/17/16 [place]-3S/Dha/Epa/Fish Oil [Fish Oil [place]-3 Softgel] 2 each PO DAILY 09/22/16 ED Physician Progress Note ED Physician Progress Note: [] 04/09/18 09:01 Discussed with patients Family and explained findings and recommendation to transfer to outside hospital for specialized diagnostic services/cardiac evaluation -heart cath/agreed with [facility]
--- NOTE | 2018-04-09 09:04 | DI ---
EXAM: Chest one view HISTORY: Chest pain COMPARISON: CT chest 09/22/2016 TECHNIQUE: Single view of the chest was performed FINDINGS: The lungs are clear. There is no pleural effusion or pneumothorax. The heart is enlarged and unchanged in size. The mediastinal contour is right noted due to patient rotation, grossly unch anged.. There are no acute abnormalities of the bones. IMPRESSION: Cardiomegaly. No acute cardiopulmonary process.
== END 2018-04-09 09:04 | disposition short-term general hospital (02) ==
LOC: ED 08:19
DX: I21.3 ST elevation (STEMI) myocardial infarction of unspecified site (principal); I10 Essential (primary) hypertension; R06.02 Shortness of breath; Z79.899 Other long term (current) drug therapy
CPT/HCPCS: 36415; 80053; 82550; 82553; 84484; 85025; 93005; 93010; 99285

== ENCOUNTER 2018-04-29 10:52 | Outpatient (RCR) ==
[2018-04-29 15:02] VITALS: TEMP 208.6; BMI 33.7
[2018-05-10 12:08] VITALS: BP 126/56
== END 2018-05-11 23:59 ==
LOC: CAR.REHAB 10:52
PROVIDERS: ATTEND Internal Medicine Cardiovascular Disease
DX: I25.810 Atherosclerosis of coronary artery bypass graft(s) without angina pectoris (principal); Z95.5 Presence of coronary angioplasty implant and graft; I25.2 Old myocardial infarction
CPT/HCPCS: 93798

== ENCOUNTER 2018-06-13 07:10 | Outpatient (RCR) ==
[2018-07-11 11:53] VITALS: BP 118/58
== END 2018-07-11 23:59 ==
LOC: CAR.REHAB 07:10
PROVIDERS: ATTEND Internal Medicine Cardiovascular Disease
DX: I25.10 Atherosclerotic heart disease of native coronary artery without angina pectoris (principal); I25.2 Old myocardial infarction; Z95.5 Presence of coronary angioplasty implant and graft
CPT/HCPCS: 93798

== ENCOUNTER 2018-07-13 07:26 | Outpatient (RCR) ==
[2018-08-01 12:01] VITALS: BP 116/56
== END 2018-08-01 13:30 | disposition home or self-care (01) ==
LOC: CAR.REHAB 07:26
PROVIDERS: ATTEND Internal Medicine Cardiovascular Disease
DX: I25.10 Atherosclerotic heart disease of native coronary artery without angina pectoris (principal); I25.2 Old myocardial infarction; Z95.5 Presence of coronary angioplasty implant and graft
CPT/HCPCS: 93798

== ENCOUNTER 2018-07-15 07:59 | Outpatient (CLI) | END 2018-07-15 08:00 | disposition home or self-care (01) | LOC: LAB 07:59 → RHC-LAB 08:00 | PROVIDERS: ATTEND General Practice | DX: E78.5 Hyperlipidemia, unspecified (principal); I10 Essential (primary) hypertension; Z79.899 Other long term (current) drug therapy | CPT/HCPCS: 36415; 80053; 80061; 81001; 85025 ==

== ENCOUNTER 2018-07-19 17:05 | Emergency (ER) ==
[2018-07-19 17:05] VITALS: BMI 33.7
[2018-07-19 17:12] VITALS: BP 145/87; TEMP 98.9
[2018-07-19] MEDS ORDERED: ALBUTEROL 0.042% NEB NEB STA (18:28)
[2018-07-19] MEDS ORDERED: DECADRON 4 MG/ML SDV IM STA (18:28)
--- NOTE | 2018-07-19 18:56 | ED.PDOC ---
General ED Provider: Dr. BARB CORTES-ER Chief Complaint: Respiratory Complaint Stated Complaint: my siinuses are draining and i am coughing Time Seen by Physician: 18:55 Mode of Arrival: Walk-In Information Source: Patient Exam Limitations: No limitations [facility] Nursing and Triage Documentation Reviewed and Agree: Yes Does patient meet sepsis criteria?: No System Inflammatory Response Syndrome: Not Applicable Sepsis Protocol: For patient's 13 years and over: Temp is 96.8 and below OR 101 and greater Pulse >90 BPM Resp >20/minute Acutely Altered Mental Status Are patient's symptoms suggestive of a new infection, such as: -Pneumonia -Skin, Soft Tissue -Endocarditis -UTI -Bone, Joint Infection -Implantable Device -Acute Abdominal Infection -Wound Infection -Meningitis -Blood Stream Catheter Infection -Unknown Respiratory Complaint Exam - Respiratory Complaint/Exam Onset/Duration: 2 days Symptoms Are: Still present Timing: Intermittent Initial Severity: Mild Current Severity: Moderate Location: Nose, Chest Character: Reports: Productive cough Aggravating: Reports: URI Associated Signs and Symptoms: Reports: URI, Sinus discomfort, Sore throat. Denies: Rapid breathing, Dyspnea Stridor Present: No JVD Present: No Accessory Muscle Use: No Retractions: Not Present Diminished Breath Sounds: No Sinus Tenderness: Maxillary Grunting Respirations: No Kussmaul Respirations: No Differential Diagnoses: Sinusitis, URI Review of Systems - Review Of Systems Constitutional: Reports: No symptoms Eyes: Reports: No symptoms Ears, Nose, Mouth, Throat: Reports: Nose discharge Respiratory: Reports: Cough Cardiac: Reports: No symptoms GI: Reports: No symptoms : Reports: No symptoms Musculoskeletal: Reports: No symptoms Skin: Reports: No symptoms Neurological: Reports: No symptoms Endocrine: Reports: No symptoms Hematologic/Lymphatic: Reports: No symptoms All Other Systems: Reviewed and Negative Past Medical History - Past Medical History Previously Healthy: No Endocrine: Reports: None Cardiovascular: Reports: Hypertension Respiratory: Reports: None Hematological: Reports: Anemia Gastrointestinal: Reports: GERD Genitourinary: Reports: None Neuro/Psych: Reports: None Musculoskeletal: Reports: None Cancer: Reports: None - Surgical History General Surgical History: Reports: Orthopedic - Family History Family History: Reports: Unknown - Social History Smoking Status: Former smoker Hx Substance Use: No Alcohol Screening: None Physical Exam - Physical Exam Appearance: Well-appearing, No pain distress, Well-nourished Eyes: LUIS EDUARDO, EOMI, Conjunctiva clear ENT: Ears normal, Nose normal, Oropharynx normal Neck: Supple Respiratory: Rhonchi Cardiovascular: RRR GI/: Soft, Nontender, No masses, Bowel sounds normal, No Organomegaly Musculoskeletal: Normal strength, ROM intact, No edema, No calf tenderness Skin: Warm, Dry, Normal color Neurological: Sensation intact, Motor intact, Reflexes intact, Cranial nerves intact, Alert, Oriented Psychiatric: Affect appropriate, Mood appropriate Interpretation - Radiology Interpretation Radiology Interpretation By: ED Physician Radiology Results: Negative Exam Interpreted: CXR Critical Care Note - Critical Care Note Total Time (mins): 0 Course - Course Orders, Labs, Meds: Orders Category Date Time Status NEBULIZER TREATMENT Stat CARDIO 07/19/18 18:29 Completed Albuterol Sulfate 0.042% Neb [Albuterol 0.042% Neb] MEDS 07/19/18 18:28 Discontinued 1 vial NEB ONCE STA Dexamethasone 4 mg/ml Inj [Decadron 4 mg/ml Sdv] MEDS 07/19/18 18:28 Discontinued 4 mg IM ONCE STA CXR [CHEST, 2 VIEWS PA & LAT] Stat RADS 07/19/18 18:29 Ordered Medications Discontinued Medications Generic Name Dose Route Start Last Admin Trade Name Freq PRN Reason Stop Dose Admin Albuterol Sulfate 1 vial 07/19/18 18:28 07/19/18 18:33 Albuterol 0.042% Neb NEB 07/19/18 18:29 1 vial ONCE STA Administration Dexamethasone Sodium Phosphate 4 mg 07/19/18 18:28 07/19/18 18:35 Decadron 4 Mg/Ml Sdv IM 07/19/18 18:29 4 mg ONCE STA Administration Vital Signs: Temp Pulse Resp BP Pulse Ox 07/19/18 17:05 98.9 F 59 L 20 145/87 H 93 L Departure - Departure Time of Disposition: 19:27 Disposition: HOME SELF-CARE Discharge Problem: Bronchitis Sinusitis Qualifiers: Sinusitis location: unspecified location Chronicity: acute Recurrence: not specified as recurrent Qualified Code(s): J01.90 - Acute sinusitis, unspecified Instructions: Rhinosinusitis (ED) Condition: Good Pt referred to PMD for follow-up: Yes IPMP verified?: No Additional Instructions: augmentin 875mg bid x 7 days plus mdp and tessalon perles 200mg tid prn cough 230--f/u wtih cpcp Allergies/Adverse Reactions: Allergies latex Allergy (Verified 07/19/18 17:13) BREAKS OUT WHEN USING LATEX GLOVES niacin Allergy (Verified 07/19/18 17:13) HOT, RASH Home Medications: Ambulatory Orders Aspirin [Aspirin Ec] 81 mg PO DAILY 03/15/15 Cyanocobalamin (Vitamin B-12) [B-12] 2,500 mcg SL DAILY 03/15/15 Omeprazole 20 mg PO BEDTIME 03/15/15 [place]-3S/Dha/Epa/Fish Oil [Fish Oil [place]-3 Softgel] 2 each PO DAILY 09/22/16 Atorvastatin Calcium [Lipitor] 40 mg PO DAILY 04/25/18 Carvedilol [Coreg] 6.25 mg PO BID 04/25/18 Ticagrelor [Brilinta] 90 mg PO BID 04/25/18 Transfer Form Completed: No Disposition Discussed With: Patient, Family
--- NOTE | 2018-07-19 19:42 | DI ---
EXAM: Chest, two views, 07/19/2018 HISTORY: Cough COMPARISON: 04/09/2018 FINDINGS / IMPRESSION: Cardiomediastinal contours appear stable. Bibasilar interstitial prominence may represent atelectasis or pneumonitis. There is no focal pulmonary consolidation. No pleural effusion or pneumothorax.
== END 2018-07-19 19:36 | disposition home or self-care (01) ==
LOC: ED 17:05
DX: J40 Bronchitis, not specified as acute or chronic (principal); J01.90 Acute sinusitis, unspecified
CPT/HCPCS: 94640; 96372; 99282

== ENCOUNTER 2018-08-08 08:54 | Outpatient (RCR) ==
[2018-08-08 10:02] VITALS: BP 124/56
== END 2018-08-11 23:59 ==
LOC: CAR.REHAB 08:54
PROVIDERS: ATTEND Internal Medicine Cardiovascular Disease
DX: I25.10 Atherosclerotic heart disease of native coronary artery without angina pectoris (principal); I25.2 Old myocardial infarction; Z95.5 Presence of coronary angioplasty implant and graft
CPT/HCPCS: 93797

== ENCOUNTER 2018-08-12 07:08 | Outpatient (RCR) ==
[2018-09-06 11:53] VITALS: BP 120/60
== END 2018-09-08 23:59 ==
LOC: CAR.REHAB 07:08
PROVIDERS: ATTEND Internal Medicine Cardiovascular Disease
DX: I25.10 Atherosclerotic heart disease of native coronary artery without angina pectoris (principal); I25.2 Old myocardial infarction; Z95.5 Presence of coronary angioplasty implant and graft
CPT/HCPCS: 93797

== ENCOUNTER 2018-09-09 07:15 | Outpatient (RCR) ==
[2018-10-06 12:46] VITALS: BP 118/56
== END 2018-10-09 23:59 ==
LOC: CAR.REHAB 07:15
PROVIDERS: ATTEND Internal Medicine Cardiovascular Disease
DX: I25.10 Atherosclerotic heart disease of native coronary artery without angina pectoris (principal); I25.2 Old myocardial infarction; Z95.5 Presence of coronary angioplasty implant and graft
CPT/HCPCS: 93797

== ENCOUNTER 2018-10-10 10:12 | Outpatient (RCR) ==
[2018-11-03 11:55] VITALS: BP 128/56
== END 2018-11-08 23:59 ==
LOC: CAR.REHAB 10:12
PROVIDERS: ATTEND Internal Medicine Cardiovascular Disease
DX: I25.10 Atherosclerotic heart disease of native coronary artery without angina pectoris (principal); I25.2 Old myocardial infarction; Z95.5 Presence of coronary angioplasty implant and graft
CPT/HCPCS: 93797

== ENCOUNTER 2018-11-09 07:39 | Outpatient (RCR) ==
[2018-12-08 11:41] VITALS: BP 124/56
== END 2018-12-09 23:59 ==
LOC: CAR.REHAB 07:39
PROVIDERS: ATTEND Internal Medicine Cardiovascular Disease
DX: I25.10 Atherosclerotic heart disease of native coronary artery without angina pectoris (principal); I25.2 Old myocardial infarction; Z95.5 Presence of coronary angioplasty implant and graft
CPT/HCPCS: 93797

== ENCOUNTER 2018-11-10 18:13 | Inpatient (IN) ==
[2018-11-10 20:41] VITALS: BMI 34.4
[2018-11-11] MEDS: TYLENOL PO PRN (02:08)
[2018-11-11] MEDS ORDERED: NON-FORMULARY MEDICATION (Losartan Potassium [Losartan Potassium] 50 MG) PO SCH (09:00)
[2018-11-11] MEDS ORDERED: NON-FORMULARY MEDICATION (Atorvastatin Calcium [Lipitor] 40 MG) PO SCH (09:00)
[2018-11-11] MEDS: ASPIRIN EC PO SCH (09:28)
[2018-11-11] MEDS: COREG PO SCH ×2 (09:29→16:57)
[2018-11-11] MEDS: COZAAR PO SCH ×2 (09:29→20:36)
[2018-11-11] MEDS: LIPITOR PO SCH (09:30)
[2018-11-11] MEDS: NON-FORMULARY MEDICATION (Cyanocobalamin (Vitamin B-12) [B-12] 2,500 MCG) SL SCH (09:30)
[2018-11-11] MEDS: [UNRECOGNIZED DRUG - OTHER] PO SCH (09:31)
[2018-11-11] MEDS: BRILINTA PO SCH ×2 (09:32→20:36)
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
[2018-11-11] MEDS: PRILOSEC PO SCH (20:36)
[2018-11-11] MEDS ORDERED: NON-FORMULARY MEDICATION (Omeprazole [Omeprazole] 20 MG) PO SCH (21:00)
[2018-11-12] MEDS: BRILINTA PO SCH ×2 (08:33→20:23)
[2018-11-12] MEDS: COZAAR PO SCH ×2 (08:34→20:22)
[2018-11-12] MEDS: COREG PO SCH ×2 (08:34→17:04)
[2018-11-12] MEDS: LIPITOR PO SCH (08:34)
[2018-11-12] MEDS: ASPIRIN EC PO SCH (08:34)
[2018-11-12] MEDS: NON-FORMULARY MEDICATION (Cyanocobalamin (Vitamin B-12) [B-12] 2,500 MCG) SL SCH (08:36)
[2018-11-12] MEDS: [UNRECOGNIZED DRUG - OTHER] PO SCH (08:36)
[2018-11-12] MEDS: TYLENOL PO PRN ×2 (15:03→21:41)
[2018-11-12] MEDS: PRILOSEC PO SCH (20:22)
[2018-11-13] MEDS: TYLENOL PO PRN (07:54)
[2018-11-13] MEDS: ASPIRIN EC PO SCH (07:55)
[2018-11-13] MEDS: COREG PO SCH ×2 (07:55→16:52)
[2018-11-13] MEDS: BRILINTA PO SCH ×2 (08:18→20:45)
[2018-11-13] MEDS: NON-FORMULARY MEDICATION (Cyanocobalamin (Vitamin B-12) [B-12] 2,500 MCG) SL SCH (08:19)
[2018-11-13] MEDS: COZAAR PO SCH (08:19)
[2018-11-13] MEDS: LIPITOR PO SCH (08:19)
[2018-11-13] MEDS: [UNRECOGNIZED DRUG - OTHER] PO SCH (08:19)
[2018-11-13] MEDS ORDERED: NORCO 5-325 PO STA (17:24)
[2018-11-13] MEDS: PRILOSEC PO SCH (20:47)
[2018-11-14] MEDS: [UNRECOGNIZED DRUG - OTHER] PO SCH (08:05)
[2018-11-14] MEDS: COREG PO SCH ×2 (08:05→16:59)
[2018-11-14] MEDS: NON-FORMULARY MEDICATION (Cyanocobalamin (Vitamin B-12) [B-12] 2,500 MCG) SL SCH (08:05)
[2018-11-14] MEDS: LIPITOR PO SCH (08:06)
[2018-11-14] MEDS: ASPIRIN EC PO SCH (08:06)
[2018-11-14] MEDS: BRILINTA PO SCH ×2 (08:06→20:58)
[2018-11-14] MEDS: BACTROBAN TP SCH (08:08)
--- NOTE | 2018-11-14 13:24 | PN ---
DATE OF SERVICE: 11/13/18 SUBJECTIVE: The patient had been complaining of pain in the left leg. The patient did tell me that he had a lot of visitors today. The swelling of the left leg is a bit more firm then it was yesterday. The patient's Tylenol was discontinued and replaced with [place] 5-325. The medication did help the pain. LUNGS: Clear to auscultation HEART: Audible with good tone The patient's Hgb did go down to 7 and so we transfused him with one unit. He claimed that he felt better after the transfusion. We will transfuse him another unit tomorrow. I did discuss with him that he needs to elevate his legs above his heart level. It should be higher. He can hang his legs only during eating or bathroom needs. He will be walking with physical therapy and that will be OK but he needs to go back to bed instead of a recliner. A large vesicle in the left later leg has ruptured. I ordered a Bactroban to be applied with a band-aid instead of an adhesive around the leg. The patient is alert and oriented times four, not dyspneic or tachypneic. The patient is taking Aspirin 81mg daily, Brilinta 90mg twice a day and Lovenox. MTDD
[2018-11-14] MEDS: PRILOSEC PO SCH (20:58)
[2018-11-14] MEDS: NORCO 5-325 PO PRN (23:53)
[2018-11-15] MEDS: NON-FORMULARY MEDICATION (Cyanocobalamin (Vitamin B-12) [B-12] 2,500 MCG) SL SCH (08:51)
[2018-11-15] MEDS: ASPIRIN EC PO SCH (08:51)
[2018-11-15] MEDS: COREG PO SCH ×2 (08:51→17:39)
[2018-11-15] MEDS: BRILINTA PO SCH ×2 (08:51→20:41)
[2018-11-15] MEDS: [UNRECOGNIZED DRUG - OTHER] PO SCH (08:51)
[2018-11-15] MEDS: LIPITOR PO SCH (08:52)
[2018-11-15] MEDS: BACTROBAN TP SCH (08:52)
[2018-11-15] MEDS: PRILOSEC PO SCH (20:41)
[2018-11-15] MEDS: NORCO 5-325 PO PRN (20:41)
[2018-11-16] MEDS: BRILINTA PO SCH ×2 (09:10→20:19)
[2018-11-16] MEDS: LIPITOR PO SCH (09:11)
[2018-11-16] MEDS: BACTROBAN TP SCH (09:11)
[2018-11-16] MEDS: COREG PO SCH ×2 (09:11→17:11)
[2018-11-16] MEDS: ASPIRIN EC PO SCH (09:11)
[2018-11-16] MEDS: NON-FORMULARY MEDICATION (Cyanocobalamin (Vitamin B-12) [B-12] 2,500 MCG) SL SCH (09:18)
[2018-11-16] MEDS: [UNRECOGNIZED DRUG - OTHER] PO SCH (09:18)
[2018-11-16] MEDS: NORCO 5-325 PO PRN (20:19)
[2018-11-16] MEDS: PRILOSEC PO SCH (20:19)
[2018-11-17] MEDS: NON-FORMULARY MEDICATION (Cyanocobalamin (Vitamin B-12) [B-12] 2,500 MCG) SL SCH (10:02)
[2018-11-17] MEDS: [UNRECOGNIZED DRUG - OTHER] PO SCH (10:02)
[2018-11-17] MEDS: BRILINTA PO SCH ×2 (10:02→21:08)
[2018-11-17] MEDS: LIPITOR PO SCH (10:02)
[2018-11-17] MEDS: ASPIRIN EC PO SCH (10:02)
[2018-11-17] MEDS: COREG PO SCH ×2 (10:03→16:58)
[2018-11-17] MEDS: NORCO 5-325 PO PRN ×2 (10:12→21:09)
[2018-11-17] MEDS: PRILOSEC PO SCH (21:08)
[2018-11-18] MEDS: BRILINTA PO SCH ×2 (08:03→20:48)
[2018-11-18] MEDS: COREG PO SCH ×2 (08:03→16:42)
[2018-11-18] MEDS: LIPITOR PO SCH (08:03)
[2018-11-18] MEDS: ASPIRIN EC PO SCH (08:03)
[2018-11-18] MEDS: [UNRECOGNIZED DRUG - OTHER] PO SCH (08:04)
[2018-11-18] MEDS: NON-FORMULARY MEDICATION (Cyanocobalamin (Vitamin B-12) [B-12] 2,500 MCG) SL SCH (08:05)
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
[2018-11-18] MEDS: PRILOSEC PO SCH (20:48)
[2018-11-19] MEDS: LIPITOR PO SCH (09:10)
[2018-11-19] MEDS: ASPIRIN EC PO SCH (09:10)
[2018-11-19] MEDS: [UNRECOGNIZED DRUG - OTHER] PO SCH (09:10)
[2018-11-19] MEDS: NON-FORMULARY MEDICATION (Cyanocobalamin (Vitamin B-12) [B-12] 2,500 MCG) SL SCH (09:10)
[2018-11-19] MEDS: COREG PO SCH ×2 (09:10→18:04)
[2018-11-19] MEDS: BRILINTA PO SCH ×2 (09:10→20:36)
[2018-11-19] MEDS ORDERED: LASIX IVP ONE (11:41)
[2018-11-19] MEDS: PRILOSEC PO SCH (20:36)
[2018-11-20] MEDS: LIPITOR PO SCH (08:13)
[2018-11-20] MEDS: BRILINTA PO SCH ×2 (08:13→20:45)
[2018-11-20] MEDS: ASPIRIN EC PO SCH (08:13)
[2018-11-20] MEDS: [UNRECOGNIZED DRUG - OTHER] PO SCH (08:13)
[2018-11-20] MEDS: COREG PO SCH ×2 (08:13→16:37)
[2018-11-20] MEDS: NON-FORMULARY MEDICATION (Cyanocobalamin (Vitamin B-12) [B-12] 2,500 MCG) SL SCH (08:13)
[2018-11-20] MEDS: PRILOSEC PO SCH (20:45)
[2018-11-20] MEDS: NORCO 5-325 PO PRN (20:45)
[2018-11-20] MEDS ORDERED: CALMOSEPTINE OINTMENT TP ONE (22:24)
[2018-11-21] MEDS: [UNRECOGNIZED DRUG - OTHER] PO SCH (09:21)
[2018-11-21] MEDS: NON-FORMULARY MEDICATION (Cyanocobalamin (Vitamin B-12) [B-12] 2,500 MCG) SL SCH (09:21)
[2018-11-21] MEDS: LIPITOR PO SCH (09:22)
[2018-11-21] MEDS: ASPIRIN EC PO SCH (09:22)
[2018-11-21] MEDS: COREG PO SCH ×2 (09:22→17:20)
[2018-11-21] MEDS: BRILINTA PO SCH ×2 (09:22→20:02)
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
[2018-11-21] MEDS: NORCO 5-325 PO PRN (20:02)
[2018-11-21] MEDS: PRILOSEC PO SCH (20:02)
[2018-11-21] MEDS: BACTROBAN TP SCH (20:05)
[2018-11-22 05:26] VITALS: BP 119/70; TEMP 97.4
[2018-11-22] MEDS: LIPITOR PO SCH (08:18)
[2018-11-22] MEDS: BRILINTA PO SCH (08:18)
[2018-11-22] MEDS: ASPIRIN EC PO SCH (08:19)
[2018-11-22] MEDS: COREG PO SCH (08:19)
[2018-11-22] MEDS: BACTROBAN TP SCH (08:21)
[2018-11-22] MEDS: [UNRECOGNIZED DRUG - OTHER] PO SCH (08:23)
[2018-11-22] MEDS: NON-FORMULARY MEDICATION (Cyanocobalamin (Vitamin B-12) [B-12] 2,500 MCG) SL SCH (08:23)
--- NOTE | 2018-11-22 10:34 | PN ---
DATE OF SERVICE: 11/20/18 - SEEN IN THE ABSENCE OF DR. MCNEAL SUBJECTIVE: The patient's leg swelling is much less, had 1400 cc out from IV Lasix, improving, has less tightness in both legs. Cardiovascular status is stable. No symptoms of CHF or coronary insufficiency. Will do CBC with diff and CMP tomorrow. Condition is stable. TIME SPENT: More than 30 minutes. Plan and coordination of the patient's care discussed in the presence of nurse. MONET
--- NOTE | 2018-11-22 13:02 | PN ---
DATE OF SERVICE: 11/21/18 SUBJECTIVE: Today Mr. Guerrero was doing well. He is currently resting comfortably in his bed in no acute distress. Pupils are active. He does have a open wound to the left lower extremity that is open to air today, that is healing and does appear to be much better. LUNGS: Clear on exam HEART: Normal sinus rhythm without any murmur ABDOMEN: Soft, nontender. He does have bruising to his upper right extremity and right lateral breast as well as right abdomen and left abdomen. These are changing colors and appear to be improving and resolving. He denies any complaints of chest pain and no abdominal pain on exam. He is requesting to be discharged home tomorrow. He does have a plan for an appointment in [place] this week to see an route sales specialist. His lower extremities do remain red and edematous but they were are involving day by day. Labs were reviewed today by Dr. Park. Hgb 9.2 and hct 29.2, alkaline phosphatase 173.4. VITAL SIGNS: Temperature 98.5, pulse 57, blood pressure 111/69, respiratory rate 17 and oxygen saturation 92% on room air with a recheck of 95% on room air. PLAN: 1. Discharge the patient home 2. Plan for home health services and this will arranged. MONET
--- NOTE | 2018-11-25 08:26 | OTDC ---
Date of Evaluation:11/10/18 Diagnosis:[Fx Right Fibula] Number of visits:[] Last Date of Service:[11/22/18] Reason For Discharge:[Pt discharged to home with home health] Discharge Summary:[Pt requires assistance with BLE dressing. Pt is Supervision for ambulation with RW. Pt has to help him with ADLS.] MOENT
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
== END 2018-11-22 13:58 | disposition home or self-care (01) | DRG 812 ==
LOC: UNDOADMIN 18:13 → MEDSURG B 18:13
PROVIDERS: ADMIT General Practice; ATTEND General Practice
PROC: 30233N1 Transfusion of Nonautologous Red Blood Cells into Peripheral Vein, Percutaneous Approach (ICD-10-PCS; principal; 2018-11-13)
DX: D64.9 Anemia, unspecified (principal); S80.12XA Contusion of left lower leg, initial encounter; S80.11XA Contusion of right lower leg, initial encounter; I25.10 Atherosclerotic heart disease of native coronary artery without angina pectoris; I10 Essential (primary) hypertension; R58 Hemorrhage, not elsewhere classified; R60.0 Localized edema
CPT/HCPCS: 36415; 36430; 80053; 81001; 83605; 84145; 85014; 85018; 85025; 86850; 86900; 86922; 93005; 93010; 97802

== ENCOUNTER 2019-02-09 07:18 | Outpatient (RCR) ==
[2019-03-09 11:57] VITALS: BP 118/62
== END 2019-03-11 23:59 ==
LOC: CAR.REHAB 07:18
PROVIDERS: ATTEND Internal Medicine Cardiovascular Disease
DX: I25.10 Atherosclerotic heart disease of native coronary artery without angina pectoris (principal); I25.2 Old myocardial infarction; Z95.5 Presence of coronary angioplasty implant and graft
CPT/HCPCS: 93797

== ENCOUNTER 2019-02-17 08:48 | Outpatient (CLI) ==
[2019-02-11 18:08] VITALS: BMI 33.7
== END 2019-02-17 08:49 | disposition home or self-care (01) ==
LOC: LAB 08:48
PROVIDERS: ATTEND General Practice
DX: I21.11 ST elevation (STEMI) myocardial infarction involving right coronary artery (principal); I15.9 Secondary hypertension, unspecified; R42 Dizziness and giddiness
CPT/HCPCS: 36415; 83880

== ENCOUNTER 2019-03-08 06:26 | Outpatient (CLI) ==
[2019-02-11 18:08] VITALS: BMI 33.7
--- NOTE | 2019-03-09 08:21 | ECHO2D ---
Date of Exam: 03/08/19 Ordering Physician: DR. BOO MCNEAL Room # : OP Reason for Echo: LEG EDEMA, SOB, ANEMIA, CARDIOMEGALY, CAD WITH STENT M-Mode Normal Adult Results LV Dimensions Normal Adult Results AoV Opening excursions >1.6 >1.6 LVEDD-base- 3.5-5.8 6.5 Ao root dimensions 2.0-3.7 3.7 LVESD-base- 3.1-4.6 L. Atrium dimensions 1.9-3.8 5.5 Post. Wall thickness 0.8-1.1 1.1 IV septum (thickness) 0.7-1.2 1.2 Post. Wall excursion 0.72-1.3 0.1 Septal motion NORMAL Systolic motion R. Ventricular cavity 1.5-2.0 NORMAL LVEF 60% 40% Paradoxical septal wall motion NORMAL 2-D : DILATED LEFT ATRIAL AND LEFT VENTRICLE CAVITIES--AKINETIC INFERIOR POST WALL, NORMAL VALVES, NO EFFUSION, NO THROMBUS M-MODE: MV: NORMAL AV: NORMAL TV: NORMAL PV: CHAMBER SIZE: ENLARGED LEFT ATRIAL AND LEFT VENTRICLE CAVITIES WALL MOTION: AKINETIC INFERIOR POST WALL PERICARDIUM: NORMAL INTERPRETATION: 1. LEFT VENTRICULAR HYPERTROPHY BORDERLINE WITH MARKEDLY ENLARGED LEFT ATRIAL CAVITY 2. DILATED LEFT VENTRICULAR CAVITY 3. AKINETIC INFERIOR POST WALL WITH EJECTION FRACTION 40% 4. VALVES NORMAL MTDD
== END 2019-03-08 06:27 | disposition home or self-care (01) ==
LOC: CAR 06:26
PROVIDERS: ATTEND General Practice
DX: R60.0 Localized edema (principal); R06.02 Shortness of breath; D64.9 Anemia, unspecified